=== PATIENT | male | born 1975 | race Caucasian/White ===

== ENCOUNTER 2017-12-06 16:37 | Emergency (ER) | payer SELFPAY ==
[2017-12-06] MEDS ORDERED: NA CHLORIDE 0.9% 1,000 ML ONE (17:43)
[2017-12-06] MEDS ORDERED: MORPHINE 4 MG/ML SYR ONE (17:43)
[2017-12-06] MEDS ORDERED: ONDANSETRON 4 MG/2 ML VIAL ONE (17:43)
[2017-12-06 17:46] LABS: Absolute Lymphocytes (CBC) 1.9 K/uL (0.7-4.9); Absolute Monocytes 0.7 K/uL (0.1-1.3); Absolute Neutrophil 5.1 K/uL (1.8-8.0); Basophils % 1.1 % (0-1.3); Eosinophils % 4.9 % (0-4.4); Hematocrit 44.8 % (39.6-49.0); Lymphocytes % 23.1 % (15.3-44.8); MCH 29.4 pg (27.0-35.0); MCV 85.4 fL (80-100); Monocytes % 8.2 % (3.3-12.3); RBC Red Blood Cell Count 5.25 M/uL (4.33-5.43)
[2017-12-06 17:53] LABS: Potassium 4.1 mEq/L (3.6-5.0)
[2017-12-06 17:59] LABS: Albumin 4.2 g/dL (3.2-5.5); Bilirubin Direct 0.1 mg/dL (0-0.2); Bilirubin Total 0.4 mg/dL (0.3-1.2); Protein, Total 7.4 g/dL (6.0-8.3)
--- NOTE | 2017-12-06 18:06 | RAD REPORT ---
EXAM DESCRIPTION: CT - Stone Protocol - 12/06/2017 5:48 pm CLINICAL HISTORY: Abdominal pain. Right flank pain x3 days. Dysuria COMPARISON: None. TECHNIQUE: Computed axial tomography of the abdomen pelvis was obtained without oral or IV contrast. Lack of IV and oral contrast limits evaluation of solid organs, bowel, and vessels. Coronal reformat apple images were obtained and reviewed. All CT scans are performed using dose optimization technique as appropriate and may include automated exposure control or mA/KV adjustment according to patient size. FINDINGS: A renal calculus is not seen. An ureteral calculus is not noted. A bladder calculus is not present. Small parapelvic left renal cysts are present. The liver, spleen, pancreas and adrenals appear grossly normal There is no evidence of diverticulitis. The appendix is not visualized IMPRESSION: Negative for a genitourinary calculus
--- NOTE | 2017-12-06 19:15 | ER ---
Nurse's Notes [facility] Name: Ryan Eaton Age: 42 yrs Sex: Male : 1975 Arrival Date: 12/06/2017 Time: 16:43 Bed 25 Private MD: Diagnosis: Abdominal tenderness;Low back pain Presentation: 12/06 16:43 Presenting complaint: Patient states: Right flank pain 8/10 and difficulty urinating x hb 3 days. Transition of care: patient was not received from another setting of care. Onset of symptoms was December 03, 2017. Risk Assessment: Do you want to hurt yourself or someone else? Patient reports no desire to harm self or others. Initial Sepsis Screen: Does the patient meet any 2 criteria? No. Patient's initial sepsis screen is negative. Does the patient have a suspected source of infection? No. Patient's initial sepsis screen is negative. Care prior to arrival: None. 16:43 Method Of Arrival: Ambulatory hb 16:43 Acuity: BIANCA 3 hb Historical: - Allergies: 16:45 No Known Allergies; hb - Immunization history:: Adult Immunizations up to date. - Social history:: Smoking status: Patient uses tobacco products, denies chronic smoking, but will smoke occasionally. - Ebola Screening: : No symptoms or risks identified at this time. Screenin:43 Abuse screen: Denies threats or abuse. Nutritional screening: No deficits noted. tl3 Tuberculosis screening: No symptoms or risk factors identified. Fall Risk None identified. Assessment: 17:43 General: Appears uncomfortable, well groomed, well developed, well nourished, Behavior tl3 is calm, cooperative, appropriate for age. Pain: Complains of pain in right lower quadrant and posterior aspect of right lateral abdomen and right low back and right mid back Pain currently is 9 out of 10 on a pain scale. Neuro: Level of Consciousness is awake, alert, obeys commands, Oriented to person, place, time, situation, Appropriate for age. Cardiovascular: Denies chest pain, Heart tones S1 S2 present Patient's skin is warm and dry. Respiratory: Airway is patent Respiratory effort is even, unlabored, Respiratory pattern is regular, symmetrical, Breath sounds are clear bilaterally. GI: No deficits noted. No signs and/or symptoms were reported involving the gastrointestinal system. : Reports decreased urine output. EENT: No deficits noted. No signs and/or symptoms were reported regarding the EENT system. Derm: No deficits noted. No signs and/or symptoms reported regarding the dermatologic system. Musculoskeletal: No deficits noted. No signs and/or symptoms reported regarding the musculoskeletal system. 18:29 Reassessment: Patient appears in no apparent distress at this time. No changes from tl3 previously documented assessment. Patient and/or family updated on plan of care and expected duration. Pain level reassessed. Patient is alert, oriented x 3, equal unlabored respirations, skin warm/dry/pink. 19:56 Reassessment: Patient appears in no apparent distress at this time. No changes from tl3 previously documented assessment. Patient and/or family updated on plan of care and expected duration. Pain level reassessed. Patient is alert, oriented x 3, equal unlabored respirations, skin warm/dry/pink. Vital Signs: 16:44 BP 163 / 104; Pulse 90; Resp 18; Temp 98.4; Pulse Ox 98% on R/A; Weight 115.67 kg; hb Height 6 ft. 1 in. (185.42 cm); Pain 8/10; 17:43 BP 117 / 92; Pulse 80; Resp 18; Pulse Ox 100% on R/A; tl3 18:29 BP 147 / 93; Pulse 65; Resp 18; Pulse Ox 98% ; tl3 19:56 BP 142 / 96; Pulse 62; Resp 18; Pulse Ox 100% on R/A; tl3 16:44 Body Mass Index 33.64 (115.67 kg, 185.42 cm) hb ED Course: 16:43 Patient arrived in ED. hb 16:44 Triage completed. hb 16:45 Arm band placed on left wrist. hb 17:11 Nito Cuevas MD is Attending Physician. [facility] 17:16 Haley Ivy, MACIEJ is Primary Nurse. tl3 17:43 Patient has correct armband on for positive identification. Bed in low position. Call tl3 light in reach. Side rails up X 1. Pulse ox on. NIBP on. 17:43 No provider procedures requiring assistance completed. Inserted saline lock: 20 gauge tl3 in left forearm, using aseptic technique. Blood collected. 17:43 Initial lab(s) drawn, by me, sent to lab. tl3 17:45 CT completed. Patient moved to CT via wheelchair. Patient moved back from CT. cw1 17:47 CT Stone Protocol In Process Unspecified. EDMS 19:56 IV discontinued, intact, bleeding controlled, No redness/swelling at site. Pressure tl3 dressing applied. Administered Medications: 18:31 Drug: morphine 4 mg Route: IVP; Infused Over: 3 mins; Site: left forearm; tl3 19:57 Follow up: Response: No adverse reaction; Pain is decreased tl3 18:31 Drug: Zofran 4 mg Route: IVP; Site: left forearm; tl3 19:57 Follow up: Response: No adverse reaction tl3 18:32 Drug: NS 0.9% 1000 ml Route: IV; Rate: 1 bolus; Site: left forearm; Delivery: Primary tl3 tubing; 19:58 Follow up: IV Status: Completed infusion; IV Intake: 1000ml tl3 19:57 Not Given (pt discharged prior to administration): TORadol 30 mg IVP once tl3 Intake: 19:58 IV: 1000ml; Total: 1000ml. tl3 Outcome: 19:15 Discharge ordered by MD. sue 19:56 Discharged to home ambulatory. tl3 19:56 Condition: good 19:56 Discharge instructions given to patient, Instructed on discharge instructions, follow up and referral plans. medication usage, Demonstrated understanding of instructions, follow-up care, medications, Prescriptions given X 2. 19:59 Patient left the ED. tl3 Signatures: Dispatcher [employer] EDNito Kidd MD MD cha Woodley, Crystal cw1 Saumya Maki, Haley Pena RN, RN RN tl3
--- NOTE | 2017-12-06 19:16 | EDPHYS ---
Physician Documentation [facility] Name: Ryan Eaton Age: 42 yrs Sex: Male : 1975 Arrival Date: 12/06/2017 Time: 16:43 Bed 25 Private MD: ED Physician Nito Cuevas HPI: 12/06 17:26 This 42 yrs old Male presents to ER via Ambulatory with complaints of Flank vikram Pain. 17:26 The patient complains of pain in the right mid back and right low back. The pain does vikram not radiate. Onset: The symptoms/episode began/occurred 3 day(s) ago. Modifying factors: The symptoms are alleviated by nothing. the symptoms are aggravated by nothing. Associated signs and symptoms: The patient has no apparent associated signs or symptoms. Severity of pain: At its worst the pain was mild in the emergency department the pain is unchanged. The patient has not experienced similar symptoms in the past. Historical: - Allergies: 16:45 No Known Allergies; hb - Immunization history:: Adult Immunizations up to date. - Social history:: Smoking status: Patient uses tobacco products, denies chronic smoking, but will smoke occasionally. - Ebola Screening: : No symptoms or risks identified at this time. ROS: 17:28 Constitutional: Negative for fever, chills, and weight loss, Eyes: Negative for injury, vikram pain, redness, and discharge, ENT: Negative for injury, pain, and discharge, Neck: Negative for injury, pain, and swelling, Cardiovascular: Negative for chest pain, palpitations, and edema, Respiratory: Negative for shortness of breath, cough, wheezing, and pleuritic chest pain, Back: Negative for injury and pain, : Negative for injury, bleeding, discharge, and swelling, MS/Extremity: Negative for injury and deformity, Skin: Negative for injury, rash, and discoloration, Neuro: Negative for headache, weakness, numbness, tingling, and seizure, Psych: Negative for depression, anxiety, suicide ideation, homicidal ideation, and hallucinations, Allergy/Immunology: Negative for hives, rash, and allergies, Endocrine: Negative for neck swelling, polydipsia, polyuria, polyphagia, and marked weight changes, Hematologic/Lymphatic: Negative for swollen nodes, abnormal bleeding, and unusual bruising. 17:28 Abdomen/GI: Positive for abdominal pain, of the posterior aspect of right lateral abdomen and right lower quadrant. Exam: 17:28 Constitutional: This is a well developed, well nourished patient who is awake, alert, vikram and in no acute distress. Head/Face: Normocephalic, atraumatic. Eyes: Pupils equal round and reactive to light, extra-ocular motions intact. Lids and lashes normal. Conjunctiva and sclera are non-icteric and not injected. Cornea within normal limits. Periorbital areas with no swelling, redness, or edema. ENT: Nares patent. No nasal discharge, no septal abnormalities noted. Tympanic membranes are normal and external auditory canals are clear. Oropharynx with no redness, swelling, or masses, exudates, or evidence of obstruction, uvula midline. Mucous membranes moist. Neck: Trachea midline, no thyromegaly or masses palpated, and no cervical lymphadenopathy. Supple, full range of motion without nuchal rigidity, or vertebral point tenderness. No Meningismus. Chest/axilla: Normal chest wall appearance and motion. Nontender with no deformity. No lesions are appreciated. Cardiovascular: Regular rate and rhythm with a normal S1 and S2. No gallops, murmurs, or rubs. Normal PMI, no JVD. No pulse deficits. Respiratory: Lungs have equal breath sounds bilaterally, clear to auscultation and percussion. No rales, rhonchi or wheezes noted. No increased work of breathing, no retractions or nasal flaring. Abdomen/GI: Soft, non-tender, with normal bowel sounds. No distension or tympany. No guarding or rebound. No evidence of tenderness throughout. Male : Normal genitalia with no discharge or lesions. Skin: Warm, dry with normal turgor. Normal color with no rashes, no lesions, and no evidence of cellulitis. MS/ Extremity: Pulses equal, no cyanosis. Neurovascular intact. Full, normal range of motion. Neuro: Awake and alert, GCS 15, oriented to person, place, time, and situation. Cranial nerves II-XII grossly intact. Motor strength 5/5 in all extremities. Sensory grossly intact. Cerebellar exam normal. Normal gait. Psych: Awake, alert, with orientation to person, place and time. Behavior, mood, and affect are within normal limits. 17:28 Back: pain, that is mild, that is moderate, of the right mid back and right low back, ROM is painless, normal spinal alignment noted, CVA tenderness, is absent, muscle spasm, is not present. Vital Signs: 16:44 BP 163 / 104; Pulse 90; Resp 18; Temp 98.4; Pulse Ox 98% on R/A; Weight 115.67 kg; hb Height 6 ft. 1 in. (185.42 cm); Pain 8/10; 17:43 BP 117 / 92; Pulse 80; Resp 18; Pulse Ox 100% on R/A; tl3 18:29 BP 147 / 93; Pulse 65; Resp 18; Pulse Ox 98% ; tl3 19:56 BP 142 / 96; Pulse 62; Resp 18; Pulse Ox 100% on R/A; tl3 16:44 Body Mass Index 33.64 (115.67 kg, 185.42 cm) hb MDM: 17:11 Patient medically screened. [facility] 17:30 Data reviewed: vital signs, nurses notes, lab test result(s), radiologic studies, CT vikram scan. 12/06 17:22 Order name: Amylase, Serum; Complete Time: 19:14 [facility] 12/06 17:22 Order name: Basic Metabolic Panel; Complete Time: 19:14 [facility] 12/06 17:22 Order name: CBC with Diff; Complete Time: 19:14 [facility] 12/06 17:22 Order name: Creatinine for Radiology; Complete Time: 19:14 [facility] 12/06 17:22 Order name: Hepatic Function; Complete Time: 19:14 [facility] 12/06 17:22 Order name: Lipase; Complete Time: 19:14 [facility] 12/06 17:22 Order name: IV Saline Lock; Complete Time: 17:47 [facility] 12/06 17:22 Order name: Labs collected and sent; Complete Time: 17:47 [facility] 12/06 17:24 Order name: CT Stone Protocol; Complete Time: 19:14 [facility] Administered Medications: 18:31 Drug: morphine 4 mg Route: IVP; Infused Over: 3 mins; Site: left forearm; tl3 19:57 Follow up: Response: No adverse reaction; Pain is decreased tl3 18:31 Drug: Zofran 4 mg Route: IVP; Site: left forearm; tl3 19:57 Follow up: Response: No adverse reaction tl3 18:32 Drug: NS 0.9% 1000 ml Route: IV; Rate: 1 bolus; Site: left forearm; Delivery: Primary tl3 tubing; 19:58 Follow up: IV Status: Completed infusion; IV Intake: 1000ml tl3 19:57 Not Given (pt discharged prior to administration): TORadol 30 mg IVP once tl3 Disposition: 12/06/17 19:15 Discharged to Home. Impression: Abdominal tenderness, Low back pain. - Condition is Stable. - Discharge Instructions: Abdominal Pain, Adult, Back Pain, Adult, Musculoskeletal Pain, Back Injury Prevention, [id number], Abdominal Pain, Adult, [id number], Back Pain, Adult, [id number]. - Prescriptions for Ibuprofen 600 mg Oral Tablet - take 1 tablet by ORAL route every 8 hours As needed take with food; 21 tablet. Tylenol- Codeine #3 300-30 mg Oral Tablet - take 2 tablet by ORAL route every 6 hours As needed; 30 tablet. - Medication Reconciliation Form, Thank You Letter, Antibiotic Education, Prescription Opioid Use, Work release form form. - Follow up: Private Physician; When: 2 - 3 days; Reason: Recheck today's complaints, Continuance of care, Re-evaluation by your physician. - Problem is new. - Symptoms have improved. Signatures: Dispatcher [employer] EDNito Kidd MD MD cha Baxter, Heather, MACIEJ WING Haley Ivy RN RN tl3 Corrections: (The following items were deleted from the chart) 19:59 19:15 12/06/2017 19:15 Discharged to Home. Impression: Abdominal tenderness; Low back tl3 pain. Condition is Stable. Forms are Medication Reconciliation Form, Thank You Letter, Antibiotic Education, Prescription Opioid Use. Follow up: Private Physician; When: 2 - 3 days; Reason: Recheck today's complaints, Continuance of care, Re-evaluation by your physician. Problem is new. Symptoms have improved. vikram
[2017-12-06] MEDS ORDERED: KETOROLAC 30 MG/ML INJ ONE (19:38)
== END 2017-12-06 19:59 | disposition home or self-care (01) ==
LOC: ER 16:37
DX: M54.5 Low back pain (principal); Z72.0 Tobacco use
CPT/HCPCS: 36415; 74176; 76377; 80048; 80076; 82150; 83690; 85025; 96361; 96374; 96375; 99284; J2405; J7030